=== PATIENT | female | born 1930 | race Caucasian/White ===

== ENCOUNTER → 2016-04-27 | Outpatient (CLI) | payer MEDICARE, OTHER ==
[~2016-04-27] MED LIST: AMOX500C PO; CHOL5000 PO; LACTCAP8 PO; MULTTAB67 PO; OMEGCAP4 PO; VITA10007 PO
[2016-04-27 14:56] LABS: AUTOMATED NEUTROPHIL # 4.5 TH/MM3 (1.8-7.7); BASOPHIL # 0.1 TH/MM3 (0-0.2); BASOPHIL % 1.4 % (0.0-2.0); EOSINOPHIL # 0.1 TH/MM3 (0-0.4); EOSINOPHIL % 1.2 % (0.0-4.0); HEMATOCRIT 35.2 % (35.0-46.0); HEMO FLAGS DIFF FINAL; LYMPH % 19.2 % (9.0-44.0); LYMPHOCYTE # 1.3 TH/MM3 (1.0-4.8); MEAN CELL VOLUME 82.6 FL (80.0-100.0); MEAN CORPUSCULAR HGB CONC 32.7 % (32.0-36.0); MONO % 10.9 % (0.0-8.0); NEUT % 67.3 % (16.0-70.0); PLATELET COUNT 303 TH/MM3 (150-450); RED BLOOD COUNT 4.26 MIL/MM3 (4.00-5.30); RED CELL DISTRIBUTION WIDTH 14.2 % (11.6-17.2); WHITE BLOOD COUNT 6.6 TH/MM3 (4.0-11.0)
--- NOTE | 2016-04-28 13:53 | EKG ---
Date Performed: 04/27/2016 Time Performed: 14:38:20 PTAGE: 85 years EKG: Sinus rhythm BORDERLINE LEFT AXIS DEVIATION RIGHT BUNDLE BRANCH BLOCK ABNORMAL ECG NO PREVIOUS TRACING DOCTOR: Ronni Snowden Interpretating Date/Time 04/28/2016 13:53:05
== END ==
LOC: CPRE 14:17
PROVIDERS: ATTEND Ophthalmology
DX: Z01.810 Encounter for preprocedural cardiovascular examination (principal); Z01.812 Encounter for preprocedural laboratory examination; H26.9 Unspecified cataract; R01.1 Cardiac murmur, unspecified; I45.10 Unspecified right bundle-branch block
CPT/HCPCS: 36415; 85025; 93005

== ENCOUNTER → 2016-05-11 | Day surgery (SDC) | payer MEDICARE, OTHER ==
--- NOTE | 2016-05-04 16:03 | MH ---
cc: NOEL ELLSWORTH DATE OF ADMISSION 05/11/2016 ADMISSION DIAGNOSIS Cataract right eye. HISTORY OF PRESENT ILLNESS This 85-year-old white female is coming through [facility] for the purpose of a lens extraction of the right eye with intraocular lens implant under local anesthesia. She has noted decreasing visual acuity interfering with her daily activities and elected to have the above procedure. Her best corrected visual acuity in room light is 20/40 -1 in the right eye and 20/40 -2 in the left. PAST MEDICAL HISTORY The patient has a history of venous insufficiency of the lower extremities and some edema. PAST SURGICAL HISTORY Includes: 1. Lumbar disks in 1970. 2. Bilateral total knee replacements. 3. And ectropion repair of the left lower lid. MEDICATIONS Daily medications include: 1. Multivitamins. 2. Vitamin C. 3. Vitamin D3. 4. Probiotic. 5. Calcium. 6. Fish oil. ALLERGIES SHE IS ALLERGIC TO MORPHINE. SOCIAL HISTORY She is a one-quarter pack per day smoker for 10 years and has red wine with dinner about 3 ounces. FAMILY HISTORY Positive for sisters with cataracts. REVIEW OF SYSTEMS HEAD: Patient denies severe headaches, dizziness or recent head injury. EARS: Patient denies hearing loss, ear pain, discharge or ringing in the ears. NOSE: Patient denies nasal discharge, obstruction or frequent colds. MOUTH AND THROAT: Patient denies soreness of the mouth or tongue, bleeding gums, trouble swallowing, changes in voice or sore throat. NECK: Patient denies neck pain or swelling, limitation of neck movement or neck injury. CARDIOPULMONARY SYSTEM: Patient denies shortness of breath, orthopnea, chronic cough, sputum production, hemoptysis, chest pain, wheezing, palpitations or light-headedness. GI SYSTEM: Patient denies poor appetite, nausea, vomiting, abdominal pain, ulcers, hemorrhoids or change in bowel habits. SYSTEM: The patient denies urinary frequency, dysuria, change in urine color. NERVOUS SYSTEM: Patient denies convulsions, vertigo, stroke, numbness or weakness. PHYSICAL EXAMINATION VITAL SIGNS: Blood pressure 132/68, pulse 76, respirations 16. HEAD: Normocephalic, atraumatic. NOSE: Without rhinorrhea. Throat clear. NECK: Supple. CHEST: Clear. HEART: Regular rhythm. ABDOMEN: Without tenderness. EXTREMITIES: With ankle edema and venous insufficiency. NEUROLOGICAL: Within normal limits. MENTAL STATUS: Within normal limits. EYE EXAMINATION The patient's best corrected visual acuity in room light is 20/40 -1 in the right eye and 20/40 -2 in the left. Visual graham are full to confrontation testing. Extraocular muscle exam reveals full versions with orthophoria at distance and exophoria at near. Pupils are 3 mm equal, round, reactive to light without afferent defect. Anterior segment examination reveals bilateral pterygia nasally in each eye. Nuclear sclerotic and cortical cataracts are present bilaterally. Intraocular pressure is 16 in the right eye and 15 in the left by applanation tonometry. Dilated fundus exam revealed sharp disks with cup-to-disk ratio 0.3 bilaterally. The macula is clear bilaterally. A posterior vitreous detachment is present bilaterally. IMPRESSION 1. Bilateral cataracts. 2. Bilateral pterygia. 3. Bilateral posterior vitreous detachment. 4. Status post ectropion repair left lower lid. PLAN And the plan is lens extraction of the right eye with intraocular lens implant under local anesthesia through [facility]. The patient has been cleared medically. She has been counseled as to the risks, benefits and alternatives and elected to proceed. I feel that cataract surgery will improve the quality of life and activities of daily living in this patient. MD GREGOR Rodriguez/RINA /3:14 PM /3:51 PM
[~2016-05-11] VITALS: Ht 157.5 cm; Wt 65.0 kg
[~2016-05-11] MED LIST changes: +ACETAMINOPHEN 500 MG CPLT ONE; +ACETYLCHOLINE CHL OPHT SOLN 1:100 2 ML VIAL ONE; +CYCLOPENTOLATE HCL 1% OPHT SOLN 2 ML BTL ONE; +DICLOFENAC SOD 0.1% OPHT SOLN 2.5 ML BTL ONE; +EPINEPHrine HCL (1:1000) 1 MG/ML VIAL ONE; +GATIFLOXACIN 0.5% OPHT SOLN 2.5 ML BTL ONE; +HYALURONIDASE/LIDOCAINE/BUPIVACAINE 4.5 ML SYR ONE; +HYALURONIDASE/LIDOCAINE/BUPIVACAINE 6 ML SYR ONE; +LIDOCAINE HCL 1% 30 ML VIAL ONE; +MIDAZOLAM HCL 2 MG/2 ML VIAL ONE; +PHENYLEPHRINE HCL 2.5% OPTH SOLN 2 ML BTL ONE; +PILOCARPINE HCL 2% OPHT SOLN 15 ML BTL ONE; +PROPARACAINE HCL 0.5% OPHT SOLN 15 ML BTL ONE; +PROPOFOL 200 MG/20 ML AMP ONE; +SODIUM CHLORID 0.9% 500 ML INJ 500 ML ONE; +TETRACAINE 0.5% OPTH SOLN 2 ML BTL ONE; +TROPICAMIDE 1% OPHT SOLN 15 ML BTL ONE
[2016-05-11 07:25] VITALS: BP 144/69; PULSE 76; RESP 16; TEMP 98.2; O2SAT 100
[2016-05-11 07:35] VITALS: PULSE 76
[2016-05-11 08:16] VITALS: PULSE 72
[2016-05-11] MEDS: TOBRAMYCIN/DEXAMETHASONE OPTH OINT 3.5 GM TUBE ONE ×2 (09:54→10:22)
[2016-05-11 10:30] VITALS: TEMP 98.1
[2016-05-11 10:50] VITALS: BP 153/87; PULSE 86; RESP 16; O2SAT 99
--- NOTE | 2016-05-13 19:47 | MP ---
cc: NOEL ZHOU DATE OF SURGERY: 05/11/2016 PREOPERATIVE DIAGNOSIS: Cataract right eye. POSTOPERATIVE DIAGNOSIS: Cataract right eye. OPERATION: Extracapsular cataract extraction with posterior chamber intraocular lens implant by phacoemulsification, right eye. SURGEON: Noel Zhou M.D. ANESTHESIA: Local. COMPLICATIONS: None. INDICATIONS: See history and physical previously dictated. OPERATIVE PROCEDURE: The patient had adequate retrobulbar and eyelid blocks administered in the holding area and was brought to the operating room. The right eye was prepped and draped in the usual sterile ophthalmic manner. A lid speculum was inserted in the right eye. A 4-0 silk bridle suture was placed through the conjunctiva near the superior rectus muscle and it was tagged to the drape. A fornix-based conjunctival flap was prepared spanning approximately 5 mm in width. Hemostasis was obtained with wet-field cautery. A 3.5 mm groove was made 1 mm from the limbus and dissected up to the limbus in the form of a scleral pocket incision. A stab incision was then made at the 2 o'clock position. Viscoelastic was injected into the anterior chamber. The anterior chamber was entered with a 2.75 mm keratome through the scleral pocket incision. A 360 degree continuous curvilinear capsulorrhexis was then performed. Hydrodissection was utilized to divide the nucleus into inner and outer components and to separate the cortex from the capsule. Phacoemulsification was then utilized to remove the nucleus. The outer nuclear layer was removed with irrigation and aspiration and short bursts of ultrasound as necessary. The cortex was removed with the irrigation/aspiration handpiece. The posterior capsule was polished with the capsule polisher. Viscoelastic was injected into the capsular bag. The intraocular lens was inspected and found to be in good condition. The lens utilized was a Manuel, model number SA60AT with a power of +25.5 diopters. The lens was inserted into the capsular bag. The viscoelastic in the anterior chamber was then removed with the irrigation-aspiration handpiece. Viscoelastic was also removed from beneath the intraocular lens. The anterior chamber was filled with Miochol-E through the stab incision and pressurized. The wound was checked for leaks at this pressure and normalized pressure and there were none. The 4-0 bridle suture was removed. The conjunctival flap was brought down over the wound and secured with cautery. Pilocarpine 2% eye drops were instilled topically. The lid speculum was removed. TobraDex ophthalmic ointment was applied. The eye was double patched and shielded. The patient tolerated the procedure well and left the Operating Room in satisfactory condition. MD GREGOR Rodriguez/macario /10:37 AM /7:28 PM
== END | disposition home or self-care (01) ==
LOC: CSDC 07:01 → EDUNIT# 08:45
PROVIDERS: ATTEND Ophthalmology
DX: H25.811 Combined forms of age-related cataract, right eye (principal)
CPT/HCPCS: 00142; 66984; J0171; J2250; J7040; V2632

== ENCOUNTER → 2016-06-29 | Outpatient (CLI) | payer MEDICARE, OTHER ==
[~2016-06-29] MED LIST changes: -ACETAMINOPHEN 500 MG CPLT ONE; -ACETYLCHOLINE CHL OPHT SOLN 1:100 2 ML VIAL ONE; -CYCLOPENTOLATE HCL 1% OPHT SOLN 2 ML BTL ONE; -DICLOFENAC SOD 0.1% OPHT SOLN 2.5 ML BTL ONE; -EPINEPHrine HCL (1:1000) 1 MG/ML VIAL ONE; -GATIFLOXACIN 0.5% OPHT SOLN 2.5 ML BTL ONE; -HYALURONIDASE/LIDOCAINE/BUPIVACAINE 4.5 ML SYR ONE; -HYALURONIDASE/LIDOCAINE/BUPIVACAINE 6 ML SYR ONE; -LIDOCAINE HCL 1% 30 ML VIAL ONE; -MIDAZOLAM HCL 2 MG/2 ML VIAL ONE; -PHENYLEPHRINE HCL 2.5% OPTH SOLN 2 ML BTL ONE; -PILOCARPINE HCL 2% OPHT SOLN 15 ML BTL ONE; -PROPARACAINE HCL 0.5% OPHT SOLN 15 ML BTL ONE; -PROPOFOL 200 MG/20 ML AMP ONE; -SODIUM CHLORID 0.9% 500 ML INJ 500 ML ONE; -TETRACAINE 0.5% OPTH SOLN 2 ML BTL ONE; -TROPICAMIDE 1% OPHT SOLN 15 ML BTL ONE
[2016-06-29 11:12] LABS: AUTOMATED NEUTROPHIL # 3.9 TH/MM3 (1.8-7.7); BASOPHIL % 0.9 % (0.0-2.0); EOSINOPHIL % 0.7 % (0.0-4.0); HEMATOCRIT 34.8 % (35.0-46.0); HEMO FLAGS DIFF FINAL; LYMPH % 19.8 % (9.0-44.0); LYMPHOCYTE # 1.1 TH/MM3 (1.0-4.8); MEAN CELL VOLUME 84.2 FL (80.0-100.0); MEAN CORPUSCULAR HEMOGLOBIN 27.7 PG (27.0-34.0); MEAN CORPUSCULAR HGB CONC 32.9 % (32.0-36.0); MONO % 8.8 % (0.0-8.0); NEUT % 69.8 % (16.0-70.0); PLATELET COUNT 325 TH/MM3 (150-450); RED BLOOD COUNT 4.13 MIL/MM3 (4.00-5.30); RED CELL DISTRIBUTION WIDTH 12.8 % (11.6-17.2); WHITE BLOOD COUNT 5.5 TH/MM3 (4.0-11.0)
== END ==
LOC: PHPRE 09:56
PROVIDERS: ATTEND Ophthalmology
DX: H26.9 Unspecified cataract (principal)
CPT/HCPCS: 85025

== ENCOUNTER → 2016-07-06 | Day surgery (SDC) | payer MEDICARE, OTHER ==
--- NOTE | 2016-06-30 10:06 | MH ---
cc: [facility], NOEL ELLSWORTH DATE OF ADMISSION 07/06/2016 ADMISSION DIAGNOSIS Cataract left eye HISTORY OF PRESENT ILLNESS This 85-year-old white female is coming through [facility] for the purpose of a lens extraction of the left eye with intraocular lens implant under local anesthesia. She had a similar procedure in April and did well postoperatively and now has requested cataract surgery for her left eye. Her best corrected visual acuity is 20/25 -2 in the right eye and 20/40 -2 in the left. PAST MEDICAL HISTORY The patient has a history of: 1. Venous insufficiency in the lower extremities having some edema. 2. She has a pterygium in both eyes in the past as well. PAST SURGICAL HISTORY Includes: 1. The above-mentioned cataract surgery in her right eye in April as well as lumbar disk surgery in 1969. 2. Bilateral total knee replacements in 2004 and 2006. 3. Ectropion repair of the left lower lid. MEDICATIONS Daily medications include: 1. Multivitamins 2. Vitamin C 3. Vitamin D3 4. Probiotic 5. Calcium 6. Fish oil ALLERGIES SHE IS ALLERGIC TO MORPHINE. SOCIAL HISTORY She is a one-quarter pack per day smoker for 10 years and drinks red wine with dinner 3 ounces. FAMILY HISTORY Positive for sisters with cataracts. REVIEW OF SYSTEMS HEAD: Patient denies severe headaches, dizziness or recent head injury. EARS: Patient denies hearing loss, ear pain, discharge or ringing in the ears. NOSE: Patient denies nasal discharge, obstruction or frequent colds. MOUTH AND THROAT: Patient denies soreness of the mouth or tongue, bleeding gums, trouble swallowing, changes in voice or sore throat. NECK: Patient denies neck pain or swelling, limitation of neck movement or neck injury. CARDIOPULMONARY SYSTEM: Denies shortness of breath, orthopnea, chronic cough, sputum production, hemoptysis, chest pain, wheezing, or light-headedness. GI SYSTEM: Patient denies poor appetite, nausea, vomiting, abdominal pain, ulcers, hemorrhoids or change in bowel habits. SYSTEM: The patient denies urinary frequency, dysuria, change in urine color. NERVOUS SYSTEM: Patient denies convulsions, vertigo, stroke, numbness or weakness. PHYSICAL EXAMINATION VITAL SIGNS: Blood pressure 116/64, pulse 84, respirations 16. HEAD: Normocephalic, atraumatic. NOSE: Without rhinorrhea. THROAT: Clear. NECK: Supple. CHEST: Clear. HEART: Regular rhythm. ABDOMEN: Without tenderness. EXTREMITIES: With ankle edema and venous insufficiency. MENTAL STATUS: Within normal limits. NEUROLOGIC: Within normal limits. EYE EXAM The patient's best corrected visual acuity is 20/25 -2 in the right eye and 20/40 -2 in the left eye in room light. Visual graham are full to confrontation testing. Extraocular muscle exam reveals full versions with orthophoria in the distance and exophoria at near. Pupils are 3 mm equal, round, reactive to light without afferent defect. Anterior segment examination reveals a posterior chamber intraocular lens in place in the right eye and nuclear sclerotic cataract as well as cortical cataract in the left eye. Intraocular pressure is 12 in the right eye and 15 in the left by applanation tonometry. Dilated fundus exam reveals sharp disks with cup-to-disk ratio 0.3 bilaterally. The macula is clear bilaterally. A posterior vitreous detachment is present bilaterally. There are pterygia present in both eyes on the cornea. IMPRESSION 1. Cataract left eye 2. Pseudophakia right eye 3. Pterygium both eyes 4. Posterior vitreous detachment both eyes 5. Status post ectropion repair left lower lid. PLAN Lens extraction of the left eye with intraocular lens implant under local anesthesia through [facility]. The patient has been cleared medically. She has been counseled as to the risks, benefits and alternatives and elected to proceed. I feel that cataract surgery will improve the quality of life and activities of daily living in this patient. MD GREGOR Rodriguez/BHAVANI /8:03 AM 8:56 AM
[~2016-07-06] VITALS: Ht 160 cm; Wt 63.5 kg
[~2016-07-06] MED LIST changes: +ACETYLCHOLINE CHL OPHT SOLN 1:100 2 ML VIAL ONE; +CYCLOPENTOLATE HCL 1% OPHT SOLN 2 ML BTL ONE; +DICLOFENAC SOD 0.1% OPHT SOLN 2.5 ML BTL ONE; +EPINEPHrine HCL (1:1000) 1 MG/ML VIAL ONE; +GATIFLOXACIN 0.5% OPHT SOLN 2.5 ML BTL ONE; +HYALURONIDASE/LIDOCAINE/BUPIVACAINE 4.5 ML SYR ONE; +HYALURONIDASE/LIDOCAINE/BUPIVACAINE 6 ML SYR ONE; +MIDAZOLAM HCL 2 MG/2 ML VIAL ONE; +PHENYLEPHRINE HCL 2.5% OPTH SOLN 2 ML BTL ONE; +PROPARACAINE HCL 0.5% OPHT SOLN 15 ML BTL ONE; +PROPOFOL 200 MG/20 ML AMP ONE; +SODIUM CHLORID 0.9% 500 ML INJ 500 ML ONE; +TROPICAMIDE 1% OPHT SOLN 15 ML BTL ONE; +VISCOAT OPHT IRRIG SOLN 0.75 ML SYRINGE LEFT EYE ONE
[2016-07-06 08:00] VITALS: PULSE 75
[2016-07-06 09:00] VITALS: PULSE 82
[2016-07-06] MEDS: TOBRAMYCIN/DEXAMETHASONE OPTH OINT 3.5 GM TUBE ONE ×2 (09:43→10:16)
[2016-07-06] MEDS: PILOCARPINE HCL 2% OPHT SOLN 15 ML BTL ONE ×2 (09:43→10:15)
[2016-07-06 10:25] VITALS: TEMP 97.8
[2016-07-06 10:55] VITALS: BP 133/49; PULSE 87; RESP 16; O2SAT 99
--- NOTE | 2016-07-07 09:47 | MP ---
cc: NOEL ZHOU M.D. DATE OF SURGERY 07/06/2016 PREOPERATIVE DIAGNOSIS Cataract left eye POSTOPERATIVE DIAGNOSIS Cataract left eye. OPERATION Extracapsular cataract extraction with posterior chamber intraocular lens implant by phacoemulsification, left eye. SURGEON Noel Zhou M.D. ANESTHESIA Local COMPLICATIONS Zonular dehiscence INDICATIONS See history and physical previously dictated. OPERATIVE PROCEDURE The patient had adequate retrobulbar and eyelid blocks administered in the holding area and was brought to the operating room. The left eye was prepped and draped in the usual sterile ophthalmic manner. A lid speculum was inserted in the left eye. A 4-0 silk bridle suture was placed through the conjunctiva near the superior rectus muscle and it was tagged to the drape. A fornix-based conjunctival flap was prepared spanning approximately 5 mm in width. Hemostasis was obtained with wet-field cautery. A 3.5 mm groove was made 1 mm from the limbus and dissected up to the limbus in the form of a scleral pocket incision. A stab incision was then made at the 2 o'clock position. Viscoelastic was injected into the anterior chamber. The anterior chamber was entered with a 2.75 mm keratome through the scleral pocket incision. A 360 degree continuous curvilinear capsulorrhexis was then performed. Hydrodissection was utilized to divide the nucleus into inner and outer components and to separate the cortex from the capsule. Phacoemulsification was then utilized to remove the nucleus. The outer nuclear layer was removed with irrigation and aspiration and short bursts of ultrasound as necessary. The cortex was removed with the irrigation/aspiration handpiece. The posterior capsule was polished with the capsule polisher. Viscoelastic was injected into the capsular bag. The intraocular lens was inspected and found to be in good condition. The lens utilized was a Manuel, model number SA60AT with a power of +25 diopters. The lens was inserted into the capsular bag. The viscoelastic was removed from the anterior chamber with a vitrectomy handpiece in the irrigation-aspiration cutter mode to ensure no vitreous was in the anterior chamber as a zonular dehiscence was noted from the 4-6 o'clock position after the lens was inserted. The anterior chamber was filled with Miochol-E through the stab incision and pressurized. The wound was checked for leaks at this pressure and normalized pressure and there were none. The 4-0 bridle suture was removed. The conjunctival flap was brought down over the wound and secured with cautery. Pilocarpine 2% eye drops were instilled topically. The lid speculum was removed. TobraDex ophthalmic ointment was applied. The eye was double patched and shielded. The patient tolerated the procedure well and left the Operating Room in satisfactory condition. MD GREGOR Rodriguez/BHAVANI /10:30 AM /9:43 AM CHRISTINE
== END | disposition home or self-care (01) ==
LOC: PHSDC 07:01
PROVIDERS: ATTEND Ophthalmology
DX: H26.9 Unspecified cataract (principal)
CPT/HCPCS: 00142; 66984; J0171; J2250; J7040; V2632